=== PATIENT | female | born 1955 | race African-American/Black ===

== ENCOUNTER 2017-05-14 18:47 | Emergency (ER) | payer OTHER ==
[~2017-05-14] VITALS: Ht 172.7 cm; Wt 100.0 kg
[~2017-05-14 18:47] MED LIST: ALBU8HFA IH; BUSP15TA3 PO; EXEM25TA PO; FLUT1DIS3 IH; GABA-531 PO; IPRAHFA IH; METO25TA6 PO; OMEP20 PO; OXYC10 PO; PRAV40TA3 PO; TRAV5DRO2 OU
[2017-05-14 20:13] LABS: BASOPHILS # (AUTO) 0.04 K/uL (0.00-0.20); BASOPHILS % (AUTO) 0.4 % (0.0-2.0); EOSINOPHILS # (AUTO) 0.15 K/uL (0.00-0.70); EOSINOPHILS % (AUTO) 1.69 % (1.0-6.0); HEMATOCRIT 37.7 % (36-46); HEMOGLOBIN 12.5 g/dL (12.0-16.0); LYMPHOCYTES # (AUTO) 2.1 K/uL (1.0-4.8); LYMPHOCYTES % (AUTO) 23.5 % (22.0-44.0); MEAN CORPUSCULAR HEMOGLOBIN 25.8 pg (26.0-34.0); MEAN CORPUSCULAR HGB CONC 33.2 G/dL (31.0-37.0); MEAN CORPUSCULAR VOLUME 78 fL (80-100); MONOCYTES # (AUTO) 1.1 K/uL (0.1-1.0); MONOCYTES % (AUTO) 12.2 % (2.0-9.0); NEUTROPHILS # (AUTO) 5.5 K/uL (1.8-7.7); NEUTROPHILS % (AUTO) 62.1 % (40.0-70.0); PLATELET COUNT (AUTO) 198 K/uL (150-450); RED BLOOD CELL COUNT(AUTO) 4.85 MIL/uL (4.00-5.20); RED CELL DISTRIBUTION WIDTH 17.6 % (11.5-14.5); WHITE BLOOD COUNT (AUTO) 8.9 K/uL (4.5-11.0)
[2017-05-14 20:19] LABS: CALCIUM, TOTAL 9.2 mg/dL (8.8-10.5); CREATININE 2.91 mg/dL (0.60-1.30); POTASSIUM 3.9 mmol/L (3.5-5.1)
[2017-05-14 20:24] LABS: ALBUMIN 3.6 g/dL (3.4-5.0); BILIRUBIN,TOTAL 0.4 mg/dL (0.1-1.0); TOTAL PROTEIN, SERUM 9.2 g/dL (6.4-8.2)
[2017-05-14] MEDS ORDERED: SODIUM CHLORIDE 0.9% 1,000 ML IV ONE (20:30)
[2017-05-14 20:52] LABS: RBC MORPHOLOGY COMMENT ABNORMAL RBC MORPH
[2017-05-14] MEDS ORDERED: LORazepam 2 MG/ML VIAL ONE (21:51)
[2017-05-14] MEDS ORDERED: LORazepam 2 MG/ML VIAL IM ONE (22:00)
[2017-05-14 22:37] VITALS: BP 133/82
== END 2017-05-14 22:45 | disposition home or self-care (01) ==
LOC: EMS 18:48
DX: I13.0 Hypertensive heart and chronic kidney disease with heart failure and stage 1 through stage 4 chronic kidney disease, or unspecified chronic kidney disease (principal); N18.9 Chronic kidney disease, unspecified; I50.9 Heart failure, unspecified; J44.9 Chronic obstructive pulmonary disease, unspecified; K21.9 Gastro-esophageal reflux disease without esophagitis; F14.10 Cocaine abuse, uncomplicated; Z86.73 Personal history of transient ischemic attack (TIA), and cerebral infarction without residual deficits; Z88.6 Allergy status to analgesic agent; Z88.5 Allergy status to narcotic agent
CPT/HCPCS: 36415; 71010; 80053; 83880; 84484; 85025; 96360; 96361; 96372; 99285; J2060; J7030

== ENCOUNTER 2017-05-29 12:03 | Emergency (ER) | payer OTHER ==
[~2017-05-29] VITALS: Ht 177.8 cm; Wt 95.5 kg
[2017-05-29 13:14] VITALS: BP 143/81
== END 2017-05-29 13:18 | disposition home or self-care (01) ==
LOC: EMS 12:04
DX: F41.9 Anxiety disorder, unspecified (principal); F14.90 Cocaine use, unspecified, uncomplicated; J44.9 Chronic obstructive pulmonary disease, unspecified; K21.9 Gastro-esophageal reflux disease without esophagitis; I10 Essential (primary) hypertension; Z88.6 Allergy status to analgesic agent; Z88.5 Allergy status to narcotic agent
CPT/HCPCS: 99283

== ENCOUNTER 2022-01-31 16:19 | Emergency (ER) | payer MEDICARE, OTHER ==
[~2022-01-31] VITALS: Ht 165.1 cm; Wt 86.4 kg
[~2022-01-31 16:19] MED LIST changes: +GABA-1181 PO; -GABA-531 PO; -OXYC10 PO; +OXYC10TA59 PO
[2022-01-31] MEDS ORDERED: 0.9% SODIUM CHLORIDE 10 ML SYRINGE IVP PRN (16:45)
[2022-01-31 16:59] LABS: COVID AG,FIA SOURCE NASAL SWAB
[2022-01-31] MEDS ORDERED: ALBUTEROL SULFATE HFA 90 MCG/PUFF 8 GM INHALER IH ONE (17:00)
[2022-01-31] MEDS ORDERED: CEPHALEXIN MONOHYDRATE 500 MG CAPSULE PO ONE (18:00)
[2022-01-31 18:11] VITALS: BP 102/54
[2022-01-31] MEDS ORDERED: CEPH-558 PO (18:15)
== END 2022-01-31 18:42 | disposition left against medical advice (07) ==
LOC: EMS 16:26
DX: J44.1 Chronic obstructive pulmonary disease with (acute) exacerbation (principal); R06.02 Shortness of breath; K13.0 Diseases of lips; I10 Essential (primary) hypertension; K21.9 Gastro-esophageal reflux disease without esophagitis; J44.9 Chronic obstructive pulmonary disease, unspecified; F14.90 Cocaine use, unspecified, uncomplicated; Z88.8 Allergy status to other drugs, medicaments and biological substances; Z88.5 Allergy status to narcotic agent; Z79.899 Other long term (current) drug therapy; Z20.822 Contact with and (suspected) exposure to COVID-19
CPT/HCPCS: 71045; 93005; 94640; 99285; J3535; 36415-L1; 36415-TC

== ENCOUNTER 2022-08-14 16:58 | Emergency (ER) | payer MEDICARE, OTHER ==
[~2022-08-14] VITALS: Ht 177.8 cm; Wt 90.9 kg
[~2022-08-14 16:58] MED LIST changes: +CEPH-558 PO
[2022-08-14] MEDS ORDERED: CAPSAICIN 0.025% 60 GM CREAM TP ONE (18:45)
[2022-08-14] MEDS ORDERED: ATOR40TA71 PO (18:48)
[2022-08-14] MEDS ORDERED: LATA2.5D14 OU (18:48)
[2022-08-14] MEDS ORDERED: METO-408 PO (18:48)
[2022-08-14] MEDS ORDERED: D-ME473S53 PO (18:48)
[2022-08-14] MEDS ORDERED: PROC5TAB54 PO (18:48)
[2022-08-14] MEDS ORDERED: FLUT1DIS26 IH (18:48)
[2022-08-14] MEDS ORDERED: HYDR-4723 PO (20:16)
[2022-08-14 20:33] VITALS: BP 139/74
[2022-08-14] MEDS ORDERED: ACET-3385 PO (21:27)
== END 2022-08-14 20:49 | disposition home or self-care (01) ==
LOC: EMS 17:01
DX: M65.20 Calcific tendinitis, unspecified site (principal); J44.9 Chronic obstructive pulmonary disease, unspecified; I10 Essential (primary) hypertension; M51.36 Other intervertebral disc degeneration, lumbar region; F14.90 Cocaine use, unspecified, uncomplicated; Z90.49 Acquired absence of other specified parts of digestive tract; Z98.890 Other specified postprocedural states; Z90.89 Acquired absence of other organs; Z88.5 Allergy status to narcotic agent; Z88.8 Allergy status to other drugs, medicaments and biological substances
CPT/HCPCS: 99283

== ENCOUNTER 2022-10-11 14:34 | Inpatient (IN) | payer MEDICARE, OTHER ==
[~2022-10-11] VITALS: Ht 157.5 cm; Wt 83.8 kg
[~2022-10-11 14:34] MED LIST changes: +ALBU18HF12 IH; -ALBU8HFA IH; +ATOR40TA71 PO; -BUSP15TA3 PO; -CEPH-558 PO; -EXEM25TA PO; +FLUT1DIS26 IH; -FLUT1DIS3 IH; -GABA-1181 PO; -IPRAHFA IH; -METO25TA6 PO; -OMEP20 PO; -OXYC10TA59 PO; -PRAV40TA3 PO; -TRAV5DRO2 OU
[2022-10-11] MEDS ORDERED: FUROSEMIDE 20 MG/2 ML VIAL IVP ONE (15:00)
[2022-10-11 15:35] LABS: COVID AG,FIA SOURCE NASOPHARYNGEAL
[2022-10-11 15:54] LABS: INFLUENZA TYPE A NEGATIVE FOR TYPE A (NEGATIVE); INFLUENZA TYPE B NEGATIVE FOR TYPE B (NEGATIVE)
[2022-10-11 16:35] LABS: BASOPHILS % (AUTO) 0.7 % (0.0-2.0); EOSINOPHILS % (AUTO) 4.3 % (1.0-6.0); HEMATOCRIT 42.2 % (36-46); HEMOGLOBIN 13.4 g/dL (12.0-16.0); LYMPHOCYTES # (AUTO) 1.2 K/uL (1.0-4.8); LYMPHOCYTES % (AUTO) 14.1 % (22.0-44.0); MEAN CORPUSCULAR HEMOGLOBIN 25.6 pg (26.0-34.0); MEAN CORPUSCULAR HGB CONC 31.7 G/dL (31.0-37.0); MEAN CORPUSCULAR VOLUME 81 fL (80-100); MONOCYTES % (AUTO) 11.1 % (2.0-9.0); NEUTROPHILS # (AUTO) 6.1 K/uL (1.8-7.7); NEUTROPHILS % (AUTO) 69.8 % (40.0-70.0); PLATELET COUNT (AUTO) 159 K/uL (150-450); RED BLOOD CELL COUNT(AUTO) 5.22 MIL/uL (4.00-5.20); RED CELL DISTRIBUTION WIDTH 17.6 % (11.5-14.5)
[2022-10-11 16:44] LABS: ANION GAP 12 mmol/L (8-16); CALCIUM, TOTAL 8.6 mg/dL (8.8-10.5); CARBON DIOXIDE 27 mmol/L (22-29); CHLORIDE 102 mmol/L (98-107); CREATININE 4.67 mg/dL (0.60-1.30); GLOMERULAR FILTR. RATE CALC 11 mL/min (>60); GLUCOSE,RANDOM 77 mg/dL (70-110); POTASSIUM 4.5 mmol/L (3.5-5.1); SODIUM SERUM 141 mmol/L (136-145); UREA NITROGEN, BLOOD 66 mg/dL (7-18)
[2022-10-11 16:50] LABS: ALANINE AMINOTRANSFERASE 16 U/L (12-78); ALBUMIN 2.7 g/dL (3.4-5.0); ALKALINE PHOSPHATASE 91 U/L (46-116); ASPARTATE AMINOTRANSFERASE 22 U/L (15-37); BILIRUBIN,TOTAL 0.4 mg/dL (0.1-1.0); CREATINE KINASE, TOTAL ONLY 66 U/L (26-192); PHOSPHORUS 6.5 mg/dL (2.5-4.9); TOTAL PROTEIN, SERUM 8.3 g/dL (6.4-8.2)
[2022-10-11 16:51] LABS: INR 1.1 (0.9-1.1); PROTHROMBIN TIME 11.9 SEC (9.4-11.6)
[2022-10-11 17:00] LABS: B-TYPE NATRIURETIC PEPTIDE 1150 pg/mL (0-100)
[2022-10-11] MEDS ORDERED: HEPARIN SODIUM,PORCINE 5,000 UNITS/ML VIAL IVP PRN ×2 (17:45)
[2022-10-11] MEDS ORDERED: HEPARIN SODIUM,PORCINE 5,000 UNITS/ML VIAL IVP ONE ×2 (17:45)
[2022-10-11] MEDS ORDERED: HEPARIN SODIUM 25000 UNITS/D5W 250 ML IV PRN (17:45)
[2022-10-11] MEDS ORDERED: ONDANSETRON HCL 4 MG/2 ML VIAL IVP PRN (19:00)
[2022-10-11] MEDS: DOCUSATE SODIUM 100 MG CAPSULE PO SCH (20:18)
[2022-10-12] MEDS ORDERED: HEPARIN SODIUM,PORCINE 5,000 UNITS/ML VIAL IVP PRN ×2 (05:45)
[2022-10-12] MEDS ORDERED: HEPARIN SODIUM 25000 UNITS/D5W 250 ML IV PRN (05:45)
[2022-10-12] MEDS: DOCUSATE SODIUM 100 MG CAPSULE PO SCH ×2 (08:20→21:00)
[2022-10-12 08:25] LABS: BASOPHILS % (AUTO) 0.5 % (0.0-2.0); EOSINOPHILS % (AUTO) 5.2 % (1.0-6.0); HEMATOCRIT 40.2 % (36-46); HEMOGLOBIN 12.7 g/dL (12.0-16.0); LYMPHOCYTES # (AUTO) 1.1 K/uL (1.0-4.8); LYMPHOCYTES % (AUTO) 15.1 % (22.0-44.0); MEAN CORPUSCULAR HEMOGLOBIN 25.6 pg (26.0-34.0); MEAN CORPUSCULAR HGB CONC 31.7 G/dL (31.0-37.0); MEAN CORPUSCULAR VOLUME 81 fL (80-100); MONOCYTES # (AUTO) 1.1 K/uL (0.1-1.0); MONOCYTES % (AUTO) 14.9 % (2.0-9.0); NEUTROPHILS # (AUTO) 4.6 K/uL (1.8-7.7); NEUTROPHILS % (AUTO) 64.3 % (40.0-70.0); PLATELET COUNT (AUTO) 145 K/uL (150-450); RED BLOOD CELL COUNT(AUTO) 4.98 MIL/uL (4.00-5.20); RED CELL DISTRIBUTION WIDTH 17.4 % (11.5-14.5)
[2022-10-12 08:43] LABS: CREATININE 4.62 mg/dL (0.60-1.30); POTASSIUM 4.6 mmol/L (3.5-5.1)
[2022-10-12 13:23] LABS: AMPHET/METH SCREEN,URINE NEGATIVE (NEGATIVE); BARBITURATE SCREEN, URINE NEGATIVE (NEGATIVE); BENZODIAZEPINES SCREEN,URINE NEGATIVE (NEGATIVE); CANNABINOID SCREEN,URINE NEGATIVE (NEGATIVE); COCAINE SCREEN,URINE POSITIVE (NEGATIVE); METHADONE SCREEN, URINE NEGATIVE (NEGATIVE); OPIATE SCREEN,URINE NEGATIVE (NEGATIVE); PHENCYCLIDINE SCREEN,URINE NEGATIVE (NEGATIVE)
[2022-10-12] MEDS: ALBUMIN HUMAN 25%-25GM/100ML 100 ML IV SCH ×2 (15:05→20:52)
[2022-10-12] MEDS: APIXABAN 5 MG TABLET PO SCH ×2 (17:04→20:51)
[2022-10-12 17:10] VITALS: BP 132/76
[2022-10-12] MEDS: ATORVASTATIN CALCIUM 40 MG TABLET PO SCH (20:49)
[2022-10-12 23:31] VITALS: BP 102/69
[2022-10-13 00:17] LABS: APPEARANCE,URINE HAZY (CLEAR); BILIRUBIN,URINE NEGATIVE (NEGATIVE); GLUCOSE, URINE (UA) NEGATIVE (NEGATIVE); KETONES,URINE NEGATIVE (NEGATIVE); LEUKOCYTE ESTERASE ,URINE LARGE (NEGATIVE); NITRATE,URINE NEGATIVE (NEGATIVE); OCCULT BLOOD,URINE SMALL (NEGATIVE); PH,URINE 6.5 (5.0-8.0); PROTEIN,URINE 300-600,SEE CONFIRM mg/dL (NEGATIVE); SPECIFIC GRAVITIY, URINE 1.015 (1.003-1.030); UROBILINOGEN,URINE <=1.0 mg/dL (<=1.0)
[2022-10-13 00:22] LABS: CREATININE,URINE RANDOM 142.8 mg/dL (30.0-125.0)
[2022-10-13 00:24] LABS: WBC,URINE 26-50 /HPF (0-5)
[2022-10-13 00:25] LABS: BACTERIA,URINE Many /HPF (None Seen); SQUAMOUS EPITHELIAL CELL,UR Few /LPF (None Seen); SULFOSALICYLIC ACID,URINE 3+ (Negative)
[2022-10-13] MEDS: ALBUMIN HUMAN 25%-25GM/100ML 100 ML IV SCH ×4 (02:55→20:17)
[2022-10-13 05:08] VITALS: BP 119/72
[2022-10-13 07:17] VITALS: BP 130/80
[2022-10-13] MEDS: DOCUSATE SODIUM 100 MG CAPSULE PO SCH ×2 (09:00→21:00)
[2022-10-13] MEDS: APIXABAN 5 MG TABLET PO SCH ×2 (09:19→21:16)
[2022-10-13 11:24] VITALS: BP 124/72
[2022-10-13] MEDS: CefTRIAXone 1 GM/DEXTROSE 50 ML IV SCH (12:13)
[2022-10-13 15:56] VITALS: BP 120/83
[2022-10-13 19:56] VITALS: BP 133/77
[2022-10-13] MEDS: ALBUTEROL SULFATE 2.5 MG/0.5 ML NEB SOLUTION NEB PRN (20:58)
[2022-10-13] MEDS: IPRATROPIUM BROMIDE 0.5 MG/2.5 ML NEB SOLUTION NEB PRN (20:58)
[2022-10-13] MEDS: ATORVASTATIN CALCIUM 40 MG TABLET PO SCH (21:17)
[2022-10-14] VITALS (7 sets, daily range): BP systolic 124–160; BP diastolic 71–105
[2022-10-14] MEDS: ALBUMIN HUMAN 25%-25GM/100ML 100 ML IV SCH ×2 (01:56→08:15)
[2022-10-14] MEDS: APIXABAN 5 MG TABLET PO SCH ×2 (08:44→20:07)
[2022-10-14] MEDS: DOCUSATE SODIUM 100 MG CAPSULE PO SCH ×2 (09:00→21:00)
[2022-10-14] MEDS: AmLODIPine BESYLATE 5 MG TABLET PO SCH (10:41)
[2022-10-14] MEDS: ACETAMINOPHEN 325 MG TABLET PO PRN ×2 (10:42→20:07)
[2022-10-14] MEDS: CefTRIAXone 1 GM/DEXTROSE 50 ML IV SCH (11:27)
[2022-10-14 13:42] LABS: BASOPHILS % (AUTO) 0.2 % (0.0-2.0); EOSINOPHILS % (AUTO) 3.9 % (1.0-6.0); HEMATOCRIT 38.1 % (36-46); HEMOGLOBIN 11.7 g/dL (12.0-16.0); LYMPHOCYTES # (AUTO) 1.1 K/uL (1.0-4.8); LYMPHOCYTES % (AUTO) 16.4 % (22.0-44.0); MEAN CORPUSCULAR HEMOGLOBIN 24.8 pg (26.0-34.0); MEAN CORPUSCULAR HGB CONC 30.8 G/dL (31.0-37.0); MEAN CORPUSCULAR VOLUME 80 fL (80-100); MONOCYTES % (AUTO) 14.6 % (2.0-9.0); NEUTROPHILS # (AUTO) 4.5 K/uL (1.8-7.7); NEUTROPHILS % (AUTO) 64.9 % (40.0-70.0); PLATELET COUNT (AUTO) 157 K/uL (150-450); RED BLOOD CELL COUNT(AUTO) 4.74 MIL/uL (4.00-5.20); RED CELL DISTRIBUTION WIDTH 17.8 % (11.5-14.5)
[2022-10-14 13:58] LABS: BILIRUBIN,TOTAL 0.4 mg/dL (0.1-1.0); CALCIUM, TOTAL 9.1 mg/dL (8.8-10.5); CREATININE 2.7 mg/dL (0.60-1.30); MAGNESIUM 1.8 mg/dL (1.80-2.40); PHOSPHORUS 4.5 mg/dL (2.5-4.9); POTASSIUM 4.8 mmol/L (3.5-5.1)
[2022-10-14] MEDS: IPRATROPIUM BROMIDE 0.5 MG/2.5 ML NEB SOLUTION NEB PRN ×2 (16:12→21:24)
[2022-10-14] MEDS: ALBUTEROL SULFATE 2.5 MG/0.5 ML NEB SOLUTION NEB PRN ×2 (16:12→21:24)
[2022-10-14] MEDS: ATORVASTATIN CALCIUM 40 MG TABLET PO SCH (20:07)
[2022-10-15 05:50] VITALS: BP 136/89
[2022-10-15] MEDS ORDERED: APIX5TAB PO (08:27)
[2022-10-15] MEDS: ALBUTEROL SULFATE 2.5 MG/0.5 ML NEB SOLUTION NEB PRN (08:47)
[2022-10-15] MEDS: IPRATROPIUM BROMIDE 0.5 MG/2.5 ML NEB SOLUTION NEB PRN (08:47)
[2022-10-15] MEDS: DOCUSATE SODIUM 100 MG CAPSULE PO SCH ×2 (09:00→09:45)
[2022-10-15 09:20] LABS: BASOPHILS % (AUTO) 0.7 % (0.0-2.0); EOSINOPHILS % (AUTO) 4.5 % (1.0-6.0); HEMATOCRIT 38.2 % (36-46); HEMOGLOBIN 12.1 g/dL (12.0-16.0); LYMPHOCYTES # (AUTO) 1.3 K/uL (1.0-4.8); LYMPHOCYTES % (AUTO) 20.6 % (22.0-44.0); MEAN CORPUSCULAR HEMOGLOBIN 25.7 pg (26.0-34.0); MEAN CORPUSCULAR HGB CONC 31.7 G/dL (31.0-37.0); MEAN CORPUSCULAR VOLUME 81 fL (80-100); MONOCYTES # (AUTO) 0.8 K/uL (0.1-1.0); MONOCYTES % (AUTO) 13.1 % (2.0-9.0); NEUTROPHILS # (AUTO) 3.8 K/uL (1.8-7.7); NEUTROPHILS % (AUTO) 61.1 % (40.0-70.0); PLATELET COUNT (AUTO) 119 K/uL (150-450); RED BLOOD CELL COUNT(AUTO) 4.72 MIL/uL (4.00-5.20); RED CELL DISTRIBUTION WIDTH 18.5 % (11.5-14.5)
[2022-10-15] MEDS: AmLODIPine BESYLATE 5 MG TABLET PO SCH (09:45)
[2022-10-15] MEDS: APIXABAN 5 MG TABLET PO SCH (09:46)
[2022-10-15 11:43] VITALS: BP 140/90
[2022-10-15] MEDS: CefTRIAXone 1 GM/DEXTROSE 50 ML IV SCH (12:01)
[2022-10-15 15:12] VITALS: BP 139/96
[2022-10-19] MEDS ORDERED: APIXABAN 5 MG TABLET PO SCH (09:00)
== END 2022-10-15 17:54 | disposition home health service (06) | DRG 299 ==
LOC: EMS 14:39 → AHU 19:33 → 5N 10-12 15:01
PROVIDERS: ADMIT Internal Medicine; ATTEND Internal Medicine
DX: I82.411 Acute embolism and thrombosis of right femoral vein (principal); I50.33 Acute on chronic diastolic (congestive) heart failure; J96.21 Acute and chronic respiratory failure with hypoxia; N18.5 Chronic kidney disease, stage 5; N39.0 Urinary tract infection, site not specified; N17.9 Acute kidney failure, unspecified; I13.2 Hypertensive heart and chronic kidney disease with heart failure and with stage 5 chronic kidney disease, or end stage renal disease; F14.90 Cocaine use, unspecified, uncomplicated; E66.9 Obesity, unspecified; Z20.822 Contact with and (suspected) exposure to COVID-19; I27.20 Pulmonary hypertension, unspecified; I36.1 Nonrheumatic tricuspid (valve) insufficiency; E78.5 Hyperlipidemia, unspecified; F19.10 Other psychoactive substance abuse, uncomplicated; Z68.33 Body mass index [BMI] 33.0-33.9, adult; D64.9 Anemia, unspecified; K21.9 Gastro-esophageal reflux disease without esophagitis; M54.50 Low back pain, unspecified; J44.9 Chronic obstructive pulmonary disease, unspecified; Z90.89 Acquired absence of other organs; Z90.49 Acquired absence of other specified parts of digestive tract; Z91.199 Patient's noncompliance with other medical treatment and regimen due to unspecified reason; Z88.6 Allergy status to analgesic agent; Z88.5 Allergy status to narcotic agent; Z86.19 Personal history of other infectious and parasitic diseases
CPT/HCPCS: 71045; 80048; 80053; 80307; 81001; 81002; 82550; 82570; 83735; 83880; 84100; 84300; 84484; 84540; 85025; 85610; 85730; 87081; 87086; 87186; 87804; 93005; 93970; 94640; 99291; G0378; G0480; J0696; J1644; J1940; P9046; 36415-L1; 36415-TC; J7613